=== PATIENT | male | born 1950 | race Caucasian/White ===

== ENCOUNTER → 2016-09-29 | Outpatient (CLI) | payer MEDICARE ==
[~2016-09-29] MED LIST: ASPI-93 PO; ATOR40TA29 PO; HYDR-2164 PO; LOSA100T7 PO; METO25TA41 PO; MULT-795 PO; UBID100C10 PO
[2016-09-29 08:49] LABS: ALBUMIN 4.5 G/DL (3.5-5.0); ALBUMIN/GLOBULIN RATIO 1.6 RATIO (1.1-2.2); ALKALINE PHOSPHATASE 74 U/L (38-126); ALT (SGPT) 49 U/L (21-72); AST (SGOT) 26 U/L (17-59); TOTAL PROTEIN 7.4 G/DL (6.3-8.2)
[2016-09-30 03:29] LABS: RISK FACTOR 3.2 RATIO (0-5.0)
== END ==
LOC: LAB 08:25
PROVIDERS: ATTEND Internal Medicine Cardiovascular Disease
DX: E78.2 Mixed hyperlipidemia (principal)
CPT/HCPCS: 36415; 80061; 80076